=== PATIENT | male | born 1990 | race Caucasian/White ===

== ENCOUNTER 2016-04-18 13:17 | Emergency (ER) | payer SELFPAY ==
[2016-04-18 14:13] VITALS: RESP 18
--- NOTE | 2016-04-18 14:33 | ED ---
General Adult HPI - General Chief complaint: Abdominal Pain Stated complaint: Abd Pain Time Seen by Provider: 04/18/16 14:13 Source: patient, RN notes reviewed Mode of arrival: ambulatory Limitations: no limitations - History of Present Illness Initial comments: If complaint history of present illness a 25-year-old male with complaint of nausea vomiting and diarrhea since 10:30 last night. Patient reports it stopped about 8 AM this morning. He did this about one time per hour. Patient reports she is feeling better at this time states he needs A to return to work - Related Data Previous Rx's Medication Instructions Recorded Ondansetron Odt [Zofran ODT] 4 mg PO Q8HR PRN #5 tab 04/18/16 Allergies Allergy/AdvReac Type Severity Reaction Status Date / Time No Known Allergies Allergy Verified 04/18/16 14:10 Review of Systems ROS Statement: Those systems with pertinent positive or pertinent negative responses have been documented in the HPI. Review of systems at this time patient not complaining of any headache or visual acuity changes no chest pain shows breath GI/ problems at this time. Does not think he ate any bad food. No friends have similar type problems. No nausea vomiting and diarrhea since 8 AM. No skin rashes or dizziness or weakness. All systems were otherwise reviewed. Past medical problems none. Surgeries none. Family history grandfather had prostate cancer. Patient denies any ALLERGIES. He quit smoking 2 months ago. Drinks alcohol socially. ROS Other: All systems not noted in ROS Statement are negative. Past Medical History Past Medical History: No Reported History History of Any Multi-Drug Resistant Organisms: None Reported Past Surgical History: No Surgical Hx Reported Past Psychological History: No Psychological Hx Reported Smoking Status: Current every day smoker Past Alcohol Use History: None Reported Past Drug Use History: None Reported General Exam - General Exam Comments Initial Comments: General: The patient is awake and alert, in no distress, and does not appear acutely ill. Here because of nausea vomiting and diarrhea which stopped approximately 4 hours ago. Vital signs are stable with temp 99.9 pulse 80 respiratory rate 18 pulse ox 98% room air blood pressure 100/57. Patient reports since any imaging been able to keep his power drinks down. Eye: Pupils are equal, round and reactive to light, extra-ocular movements are intact ; there is normal conjunctiva bilaterally. No signs of icterus. Ears, nose, mouth and throat: There are moist mucous membranes and no oral lesions. Neck: The neck is supple, there is no tenderness . Cardiovascular: There is a regular rate and rhythm. No murmur, rub or gallop is appreciated. Respiratory: Lungs are clear to auscultation, respirations are non-labored, breath sounds are equal. No wheezes, stridor, rales, or rhonchi. Gastrointestinal: Soft, non-distended, non-tender abdomen without masses or organomegaly noted. There is no rebound or guarding present. No CVA tenderness. Bowel sounds are unremarkable. Back: There is no tenderness to palpation in the midline. There is no obvious deformity. No rashes noted. Negative kidney punch his. Musculoskeletal: Normal ROM, no tenderness, There is no pedal edema. There is no calf tenderness or swelling. Sensation intact. Pulses equal bilaterally 2+. Neurological: No neuro deficits Skin: Skin is warm and dry and no rashes or lesions are noted. Limitations: no limitations Course Vital Signs 04/18/16 14:11 Temperature 99.9 F H Pulse Rate 80 Respiratory 18 Rate Blood Pressure 109/57 O2 Sat by Pulse 98 Oximetry Medical Decision Making - Medical Decision Making The patient is declining IV fluids because he is feeling better. He is requesting a return to work slip for tomorrow. Patient was advised to continue to improve and advance his fluid intake and then easily digested foods. Advised to use Zofran which is currently prescribed as well as Pepto-Bismol as needed. To be given in the family physician in follow-up with or return emergency room as needed. Disposition Clinical Impression: Gastroenteritis Disposition: HOME SELF-CARE Condition: Fair Instructions: Gastroenteritis (ED), Acute Nausea and Vomiting (ED) Additional Instructions: Use Zofran to control nausea advanced fluids and then easy to digest diet. Use Pepto-Bismol as well. Prescriptions: Ondansetron Odt [Zofran ODT] 4 mg PO Q8HR PRN #5 tab PRN Reason: Nausea Time of Disposition: 14:33
[2016-04-18 14:52] VITALS: BP 112/78; PULSE 86; TEMP 99
== END 2016-04-18 14:45 | disposition home or self-care (01) ==
LOC: EC 13:17
DX: K52.9 Noninfective gastroenteritis and colitis, unspecified (principal); Z87.891 Personal history of nicotine dependence
CPT/HCPCS: 99283

== ENCOUNTER 2019-07-24 10:13 | Emergency (ER) | payer BC, OTHER ==
[2019-07-24 10:21] VITALS: RESP 18; TEMP 98.1
[2019-07-24] MEDS ORDERED: KETOROLAC 30 MG/ML 1 ML VIAL IVP STA (10:39)
--- NOTE | 2019-07-24 10:58 | ED ---
Chest Pain HPI - General Chief Complaint: Chest Pain Stated Complaint: chest pains Time Seen by Provider: 07/24/19 10:23 Source: patient, RN notes reviewed Mode of arrival: ambulatory Limitations: no limitations - History of Present Illness Initial Comments: 28-year-old male presented to the emergency Department with chief complaint of left-sided chest discomfort. Patient states started around 8 PM last night. Patient states that it does hurt when he moves his left arm especially reaches across. 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 States he has some pleuritic chest pain no shortness breath no headache or dizziness. No prior cardiac or pulmonary disease. No abdominal complaints. Patient offers no other complaints. - Related Data Previous Rx's Medication Instructions Recorded Ibuprofen [Motrin] 600 mg PO Q8HR PRN #20 tab 07/24/19 Allergies Allergy/AdvReac Type Severity Reaction Status Date / Time No Known Allergies Allergy Verified 07/24/19 11:24 Review of Systems ROS Statement: Those systems with pertinent positive or pertinent negative responses have been documented in the HPI. ROS Other: All systems not noted in ROS Statement are negative. EKG Findings - EKG Comments: EKG Findings:: EKG performed at 10:34 normal sinus rhythm with a rate of 73 RI 154 QRS 70 QTC is QTC 344 [birth year]1977 there is no inverted T-wave in3 Past Medical History Past Medical History: No Reported History History of Any Multi-Drug Resistant Organisms: None Reported Past Surgical History: No Surgical Hx Reported Past Psychological History: No Psychological Hx Reported Smoking Status: Former smoker Past Alcohol Use History: None Reported Past Drug Use History: None Reported General Exam Limitations: no limitations General appearance: alert, in no apparent distress Head exam: Present: atraumatic, normocephalic, normal inspection Eye exam: Present: normal appearance, PERRL, EOMI. Absent: scleral icterus, conjunctival injection, periorbital swelling ENT exam: Present: normal exam, normal oropharynx, mucous membranes moist Neck exam: Present: normal inspection, full ROM. Absent: tenderness, meningismus, lymphadenopathy Respiratory exam: Present: normal lung sounds bilaterally, chest wall tenderness. Absent: respiratory distress, wheezes, rales, rhonchi, stridor Cardiovascular Exam: Present: regular rate, normal rhythm, normal heart sounds. Absent: systolic murmur, diastolic murmur, rubs, gallop, clicks Extremities exam: Present: other (Pain and left-sided chest with left arm movement especially adduction) Neurological exam: Present: alert, oriented X3, CN II-XII intact Skin exam: Present: warm, dry, intact, normal color. Absent: rash Course Vital Signs 07/24/19 07/24/19 10:18 11:52 Temperature 98.1 F Pulse Rate 70 72 Respiratory 18 18 Rate Blood Pressure 137/72 130/78 O2 Sat by Pulse 99 98 Oximetry Chest Pain MDM - MDM 28-year-old male present emergency Department for left-sided reproducible chest pain. Patient workup was negative at this time. Patient's symptoms are consistent with a muscular injury/strain. Patient we discharged advised to take anti-inflammatories return parameters were discussed. Disposition Clinical Impression: Chest wall pain, Chest wall muscle strain Disposition: HOME SELF-CARE Condition: Stable Instructions (If sedation given, give patient instructions): Chest Wall Pain (ED) Additional Instructions: Please return to the Emergency Department if symptoms worsen or any other concerns. Prescriptions: Ibuprofen [Motrin] 600 mg PO Q8HR PRN #20 tab PRN Reason: Pain Is patient prescribed a controlled substance at d/c from ED?: No Referrals: None,Stated [Primary Care Provider] - 1-2 days Time of Disposition: 12:18
--- NOTE | 2019-07-24 11:00 | XR ---
EXAMINATION TYPE: XR chest 2V DATE OF EXAM: 07/24/2019 COMPARISON: NONE HISTORY: Chest pain TECHNIQUE: Frontal and lateral views of the chest are obtained. FINDINGS: There is no focal air space opacity, pleural effusion, or pneumothorax seen. The cardiac silhouette size is within normal limits. The osseous structures are intact. IMPRESSION: No acute cardiopulmonary process.
[2019-07-24 11:07] LABS: Basophils % (A) 1 %; Eosinophils # (A) 0.2 k/uL (0-0.7); Eosinophils % (A) 2 %; HCT 47.7 % (39.0-53.0); HGB 16.1 gm/dL (13.0-17.5); Lymphocytes # (A) 2.6 k/uL (1.0-4.8); Lymphocytes % (A) 30 %; MCH 29.6 pg (25.0-35.0); MCHC 33.7 g/dL (31.0-37.0); MCV 87.8 fL (80.0-100.0); Mean Platelet Volume 8.7; Monocytes # (A) 0.3 k/uL (0-1.0); Monocytes % (A) 4 %; Neutrophils # (A) 5.2 k/uL (1.3-7.7); Neutrophils % (A) 62 %; Platelet Count 232 k/uL (150-450); RBC 5.43 m/uL (4.30-5.90); RDW 12.7 % (11.5-15.5); WBC 8.5 k/uL (3.8-10.6)
[2019-07-24 11:16] LABS: ALT 31 U/L (4-49); AST 31 U/L (17-59); African American GFR (CKD) >90 (>60 ml/min/1.73 sqM); Alkaline Phosphatase 40 U/L (38-126); Anion Gap 13 mmol/L; Blood Urea Nitrogen 15 mg/dL (9-20); Calcium 9.7 mg/dL (8.4-10.2); Carbon Dioxide 23 mmol/L (22-30); Chloride 102 mmol/L (98-107); Glucose 148 mg/dL (74-99); Magnesium 1.9 mg/dL (1.6-2.3); Non-African American GFR(CKD) >90 (>60 ml/min/1.73 sqM); Potassium 4.9 mmol/L (3.5-5.1); Sodium 138 mmol/L (137-145); Total Bilirubin 0.6 mg/dL (0.2-1.3); Total Protein 8.2 g/dL (6.3-8.2)
[2019-07-24 12:28] VITALS: BP 123/79; PULSE 88
== END 2019-07-24 12:27 | disposition home or self-care (01) ==
LOC: EC 10:13
DX: S29.011A Strain of muscle and tendon of front wall of thorax, initial encounter (principal); Z87.891 Personal history of nicotine dependence; X58.XXXA Exposure to other specified factors, initial encounter
CPT/HCPCS: 36415; 71046; 80053; 83735; 84484; 85025; 85379; 93005; 99285

== ENCOUNTER 2019-12-07 22:36 | Emergency (ER) | payer BC ==
[2019-12-07 22:41] VITALS: BP 156/92; PULSE 73; RESP 18; TEMP 97.7
--- NOTE | 2019-12-07 23:32 | ED ---
ENT HPI - General Chief complaint: ENT Stated complaint: Difficulty swallowing Time Seen by Provider: 12/07/19 22:42 Source: patient Mode of arrival: ambulatory Limitations: no limitations - History of Present Illness Initial comments: Tree is a previously healthy fully vaccinated 29-year-old male who presents to the emergency department today via private vehicle for evaluation of 2 weeks of sore throat and difficulty swallowing. Patient reports that for the past 2 weeks he has some discomfort in his throat he feels like he constantly needs to clear his throat, he occasionally has a cough that is nonproductive. He denies any trouble speaking or swallowing. Denies any pain with swallowing. Denies any choking episodes. Does report that he has been somewhat congested and doesn't typically suffer from seasonal ALLERGY so he has not been taking anything for this. Denies any fevers, chills nausea or vomiting. He is not a cigarette smoker and not a smokeless tobacco user. - Related Data Previous Rx's Medication Instructions Recorded Ibuprofen [Motrin] 600 mg PO Q8HR PRN #20 tab 07/24/19 Fluticasone Nasal [place] [Flonase 2 spr EA NOSTRIL DAILY #1 bottle 12/07/19 Nasal [place]] Loratadine [Claritin] 5 mg PO DAILY #30 tab 12/07/19 Allergies Allergy/AdvReac Type Severity Reaction Status Date / Time No Known Allergies Allergy Verified 12/07/19 22:39 Review of Systems ROS Statement: Those systems with pertinent positive or pertinent negative responses have been documented in the HPI. ROS Other: All systems not noted in ROS Statement are negative. Past Medical History Past Medical History: No Reported History History of Any Multi-Drug Resistant Organisms: None Reported Past Surgical History: No Surgical Hx Reported Past Psychological History: No Psychological Hx Reported Smoking Status: Former smoker Past Alcohol Use History: None Reported Past Drug Use History: None Reported General Exam - General Exam Comments Initial Comments: Physical Exam GENERAL: Patient is well-developed and well-nourished. Patient is nontoxic and well-hydrated and is in no distress. HENT: Normocephalic, Atraumatic. Oropharynx noted to have a mildly erythematous posterior oropharynx and some postnasal drip noted Clear rhinorrhea EYES: PERRL, EOMI PULMONARY: Unlabored respirations. CARDIOVASCULAR: RRR Warm and well perfused extremities ABDOMEN: Non-distended SKIN: No rashes or bruising : Deferred NEUROLOGIC: Alert and oriented Normal speech Normal gait MUSCULOSKELETAL: Moving all extremities with no apparent injury PSYCHIATRIC: No SI/HI Limitations: no limitations Course Vital Signs 12/07/19 22:37 Temperature 97.7 F Pulse Rate 73 Respiratory 18 Rate Blood Pressure 156/92 O2 Sat by Pulse 98 Oximetry Medical Decision Making - Medical Decision Making The patient was seen and evaluated history is obtained from the patient History and physical exam are relatively unremarkable patient has some evidence of post nasal drip to suspect are causing his 2 weeks of symptoms Patient has normal voice no trouble speaking or swallowing he is fully vaccinated I have no concern for epiglottitis, patient has no risk factors for oral pharyngeal malignancy Risks and benefits of computed tomography scan of the neck including exposure to radiation were discussed with the patient, at this time patient's comfortable not having a computed tomography scan and trying supportive care I recommended the patient try supportive care with treatment for seasonal ALLERGIES to decrease postnasal drip and outpatient follow-up with ENT for possible scope if symptoms persist All questions pertaining care were answered return parameters were discussed patient was discharged home in stable condition Disposition Clinical Impression: Postnasal drip Disposition: HOME SELF-CARE Condition: Stable Prescriptions: Loratadine [Claritin] 5 mg PO DAILY #30 tab Fluticasone Nasal [place] [Flonase Nasal [place]] 2 spr EA NOSTRIL DAILY #1 bottle Is patient prescribed a controlled substance at d/c from ED?: No Referrals: Avery Alvarado MD [Primary Care Provider] - 1-2 days Boy Trejo MD [STAFF PHYSICIAN] - 1-2 days
== END 2019-12-07 23:16 | disposition home or self-care (01) ==
LOC: EC 22:36
DX: R09.82 Postnasal drip (principal); Z87.891 Personal history of nicotine dependence
CPT/HCPCS: 99283

== ENCOUNTER → 2020-01-19 | Outpatient (CLI) | payer BC ==
--- NOTE | 2020-01-19 12:32 | FL ---
Barium swallow HISTORY: Food getting stuck sensation, R 13.10 Patient was given high density barium to drink. 1 minute 34 seconds fluoroscopy time, 60 images obtained The swallowing mechanism is normal. There is no obstruction to flow. No extrinsic or intrinsic esopha geal lesion. No evident gastroesophageal reflux. No evident hiatal hernia. IMPRESSION: Normal barium swallow.
== END | disposition home or self-care (01) ==
LOC: RADUSWWP 10:08
PROVIDERS: ATTEND Otolaryngology
DX: R13.10 Dysphagia, unspecified (principal)
CPT/HCPCS: 74220

== ENCOUNTER → 2020-11-25 | Outpatient (CLI) | payer BC ==
--- NOTE | 2020-11-26 09:15 | XR ---
EXAMINATION TYPE: XR knee 4V RT DATE OF EXAM: 11/25/2020 CLINICAL HISTORY: pain TECHNIQUE: Three views of the right knee are obtained. [place] patellar views also obtained. COMPARISON: None. FINDINGS: There is no acute fracture/dislocation. The tri-compartment joint spaces appear within no rmal limits. The overlying soft tissue appears unremarkable. IMPRESSION: There is no acute fracture or dislocation.ICD 10 NO FRACTURE, INITIAL EVALUATION
== END | disposition home or self-care (01) ==
LOC: RADXRMAIN 16:55
PROVIDERS: ATTEND Nurse Practitioner
DX: M25.561 Pain in right knee (principal)